=== PATIENT | female | born 1975 | race Caucasian/White ===

== ENCOUNTER 2016-12-12 19:40 | Emergency (ER) | payer OTHER ==
[~2016-12-12] VITALS: Ht 160 cm; Wt 100.2 kg
[~2016-12-12 19:40] MED LIST: ACET325T96 PO; CLC150 PO; MOMLX PO; TYL325X PO
[2016-12-12 19:43] VITALS: TEMP 36.7; Ht 160 cm; Wt 100.2 kg
[2016-12-12] MEDS ORDERED: SODIUM CHLORIDE 0.9% 1000ML 1,000 ML IV STA (20:04)
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
[2016-12-12 20:34] LABS: BASO % 0.3 %; BASO ABS # 0.03 K/uL (0-0.2); COMPLETE YES; EOS % 4.3 %; HEMATOCRIT 36.8 % (37-47); IG% 0.2 %; LYMPH % 30.3 %; LYMPH ABS # 3.14 K/uL (1.2-3.4); MEAN CELL VOLUME 90.9 fL (80-100); MEAN CORPUSCULAR HEMOGLOBIN 30.1 pg (25-34); MEAN CORPUSCULAR HGB CONC 33.2 g/dl (32-36); MEAN PLATELET VOLUME 10.5 fL (7.4-10.4); MONO % 5.7 %; NEUT % 59.2 %; PLATELET COUNT 311 K/uL (130-400); RED BLOOD COUNT 4.05 M/uL (4.2-5.4); WHITE BLOOD COUNT 10.36 K/uL (4.8-10.8)
[2016-12-12] MEDS ORDERED: BCPILLS PO (20:34)
[2016-12-12] MEDS ORDERED: MTR/400 PO (20:34)
[2016-12-12] MEDS ORDERED: CHOL2000 PO (20:34)
[2016-12-12] MEDS ORDERED: B COCAP PO (20:34)
[2016-12-12] MEDS ORDERED: LITH1TAB PO (20:34)
[2016-12-12] MEDS ORDERED: CHLO1TAB15 PO (20:34)
[2016-12-12] MEDS ORDERED: WLLSR150 PO (20:34)
[2016-12-12 20:47] LABS: BUN/CREATININE RATIO 11.5 (10-20); CREATININE 1.1 mg/dl (0.60-1.20); POTASSIUM 3.1 mmol/L (3.5-5.1)
[2016-12-12 20:48] LABS: CALCIUM 8.5 mg/dl (8.5-10.1)
[2016-12-12] MEDS ORDERED: OPTIRAY 320 IV PRN (21:15)
--- NOTE | 2016-12-12 21:16 | DIAGNOSTIC IMAGING REPORT ---
CT OF THE ABDOMEN AND PELVIS WITH CONTRAST CLINICAL HISTORY: Left sided abd pain, lateral hernia, bloating, constipation. COMPARISON STUDY: CT of the abdomen and pelvis December 25, 2014, pelvic ultrasound and renal ultrasound May 24, 2015. TECHNIQUE: Following IV administration of 115 mL of Optiray-320, axial images of the abdomen and pelvis were obtained from the lung bases to the proximal femurs. Images were reviewed in the axial, sagittal, and coronal planes. IV contrast was administered without complication. CT DOSE: 1248.36 mGy.cm FINDINGS: No pneumatosis, free air or portal venous gas is present. There is no biliary ductal dilatation status post cholecystectomy. The liver, spleen, adrenal glands and kidneys are unremarkable. There is no hydronephrosis. There is no peripancreatic infiltration. There is no hydronephrosis. There is mild distention of the stomach. There are findings consistent with repair of a left lateral abdominal wall hernia. A recurrent left lateral abdominal wall hernia is again noted, as shown on CT of December 21, 2014. Splenic flexure of the colon extends through the defect. A few small bowel loops slightly extends through the defect. There is no resultant bowel obstruction. As before, the left lateral abdominal wall musculature is attenuated with atrophy. There is no ascites. There is no abscess or lymphadenopathy. A tampon is in place. A fat-containing left inguinal hernia is noted. No suspicious osseous lesions are present. Caliber and wall thickness of small and large bowel are normal. Appendix is normal. IMPRESSION: 1. No acute process within the abdomen or pelvis. 2. Redemonstration of a recurrent left lateral abdominal wall hernia which contains the splenic flexure of the colon and a few small bowel loops. No bowel obstruction. Electronically signed by: Felix Douglas M.D. 12/12/2016 9:15 PM Dictated Date/Time: 12/12/2016 9:06 PM
[2016-12-12 21:34] LABS: URINE APPEARANCE CLEAR (CLEAR); URINE BILIRUBIN NEG (NEG); URINE COLOR YELLOW; URINE NITRITE NEG (NEG); URINE SPECIFIC GRAVITY 1.031 (1.000-1.030); UROBILINOGEN NEG (NEG); ZZUR CULT IF INDIC CLEAN CATCH NO
[2016-12-12 21:36] LABS: MANUAL MICROSCOPIC REQUIRED? NO; REVIEW REQ? NO
[2016-12-12 22:06] VITALS: BP 126/68; PULSE 60; O2SAT 99
== END 2016-12-12 22:07 | disposition home or self-care (01) ==
LOC: C.EDB 19:41
DX: R14.0 Abdominal distension (gaseous) (principal); J45.909 Unspecified asthma, uncomplicated; F31.9 Bipolar disorder, unspecified; Z62.810 Personal history of physical and sexual abuse in childhood; Z91.5 Personal history of self-harm; Z86.59 Personal history of other mental and behavioral disorders; Z98.51 Tubal ligation status; Z90.49 Acquired absence of other specified parts of digestive tract; Z98.890 Other specified postprocedural states; Z83.3 Family history of diabetes mellitus; Z82.49 Family history of ischemic heart disease and other diseases of the circulatory system; Z79.899 Other long term (current) drug therapy

== ENCOUNTER 2017-02-03 15:58 | Emergency (ER) | payer OTHER ==
[~2017-02-03] VITALS: Ht 160 cm; Wt 95.4 kg
[~2017-02-03 15:58] MED LIST changes: -ACET325T96 PO; +B COCAP PO; +BCPILLS PO; +CHLO1TAB15 PO; +CHOL2000 PO; -CLC150 PO; +LITH1TAB PO; -MOMLX PO; +MTR/400 PO; -TYL325X PO; +WLLSR150 PO
[2017-02-03 16:02] VITALS: TEMP 36.6; Ht 160 cm; Wt 95.4 kg
[2017-02-03] MEDS ORDERED: PROCHLORPERAZINE 5 MG/ML 2 ML VIAL IV STA (16:28)
[2017-02-03] MEDS ORDERED: SODIUM CHLORIDE 0.9% 1000ML 1,000 ML IV STA (16:28)
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
[2017-02-03] MEDS ORDERED: THR10 PO (16:49)
[2017-02-03 17:03] LABS: BASO % 0.2 %; BASO ABS # 0.02 K/uL (0-0.2); COMPLETE YES; EOS % 3.7 %; HEMATOCRIT 39.7 % (37-47); IG% 0.3 %; LYMPH % 18.8 %; LYMPH ABS # 1.89 K/uL (1.2-3.4); MEAN CELL VOLUME 89.6 fL (80-100); MEAN CORPUSCULAR HEMOGLOBIN 31.4 pg (25-34); MEAN PLATELET VOLUME 10.1 fL (7.4-10.4); MONO % 6.9 %; NEUT % 70.1 %; PLATELET COUNT 348 K/uL (130-400); RED BLOOD COUNT 4.43 M/uL (4.2-5.4); WHITE BLOOD COUNT 10.06 K/uL (4.8-10.8)
--- NOTE | 2017-02-03 17:17 | DIAGNOSTIC IMAGING REPORT ---
CT HEAD WITHOUT CONTRAST (CT) CLINICAL HISTORY: Severe headache, nausea, vomiting COMPARISON STUDY: 10/13/2015, MRI the brain dated 10/14/2015 TECHNIQUE: Axial CT of the brain is performed from the vertex to the skull base. IV contrast was not administered for this examination. A dose lowering technique was utilized adhering to the principles of ALARA. CT DOSE: 601.98 mGy.cm FINDINGS: No intra or extra-axial mass lesions are visualized. There is no CT evidence of acute cortical infarction. There is no evidence of midline shift. There is no acute hemorrhage. No calvarial fractures are visualized. There are a few white matter hypodensities likely on a small vessel basis, and similar to the preceding study.. There is no evidence of pathologic ventricular dilatation. There is no evidence of acute sinusitis IMPRESSION: No acute intracranial findings Electronically signed by: Jhony Mcgee M.D. 02/03/2017 5:16 PM Dictated Date/Time: 02/03/2017 5:14 PM
[2017-02-03 17:23] LABS: BUN/CREATININE RATIO 16.5 (10-20); CALCIUM 9.8 mg/dl (8.5-10.1); CREATININE 0.8 mg/dl (0.60-1.20); POTASSIUM 3.5 mmol/L (3.5-5.1)
[2017-02-03] MEDS ORDERED: KETOROLAC TROMETHAMINE 30 MG/ML VIAL IV STA (17:44)
[2017-02-03 18:02] LABS: MANUAL MICROSCOPIC REQUIRED? NO; REVIEW REQ? YES; URINE APPEARANCE CLEAR (CLEAR); URINE BILIRUBIN NEG (NEG); URINE COLOR DK YELLOW; URINE EPITHELIAL CELL AUTO >30 /lpf (0-5); URINE NITRITE NEG (NEG); URINE SPECIFIC GRAVITY 1.016 (1.000-1.030); UROBILINOGEN NEG (NEG)
[2017-02-03 18:11] LABS: URINE MUCUS PRESENT (NONE PRSENT)
[2017-02-03] MEDS ORDERED: CYCL10TA6 PO (19:53)
[2017-02-03] MEDS ORDERED: FLEXERIL HOME PACK 10 MG VIAL PO ONE (20:00)
[2017-02-03 21:01] VITALS: BP 101/61
[2017-02-03 21:07] VITALS: PULSE 70; O2SAT 97
== END 2017-02-03 21:08 | disposition home or self-care (01) ==
LOC: C.EDB 15:59
DX: G44.209 Tension-type headache, unspecified, not intractable (principal); F90.9 Attention-deficit hyperactivity disorder, unspecified type; F31.9 Bipolar disorder, unspecified; J45.909 Unspecified asthma, uncomplicated; Z90.49 Acquired absence of other specified parts of digestive tract; Z98.51 Tubal ligation status; Z98.890 Other specified postprocedural states; Z79.899 Other long term (current) drug therapy; Z83.3 Family history of diabetes mellitus; Z80.9 Family history of malignant neoplasm, unspecified; Z82.49 Family history of ischemic heart disease and other diseases of the circulatory system; Z83.79 Family history of other diseases of the digestive system; Z84.1 Family history of disorders of kidney and ureter

== ENCOUNTER → 2017-10-06 | Outpatient (CLI) | payer OTHER ==
[~2017-10-06] MED LIST changes: +THR10 PO
[2017-10-06 09:34] LABS: BASO % 0.3 %; BASO ABS # 0.03 K/uL (0-0.2); EOS % 2.5 %; EOS ABS # 0.27 K/uL (0-0.5); HEMATOCRIT 39.9 % (37-47); HEMOGLOBIN 13.9 g/dL (12.0-16.0); IG# 0.02 K/uL (0.00-0.02); LYMPH ABS # 2.08 K/uL (1.2-3.4); MEAN CELL VOLUME 87.7 fL (80-100); MEAN CORPUSCULAR HEMOGLOBIN 30.5 pg (25-34); MEAN CORPUSCULAR HGB CONC 34.8 g/dl (32-36); MEAN PLATELET VOLUME 10.4 fL (7.4-10.4); MONO % 4.6 %; MONO ABS # 0.51 K/uL (0.11-0.59); NEUT % 73.4 %; NEUT ABS # 8.06 K/uL (1.4-6.5); PLATELET COUNT 372 K/uL (130-400); RED CELL DISTRIBUTION WIDTH CV 12.9 % (11.5-14.5); RED CELL DISTRIBUTION WIDTH SD 41.6 fL (36.4-46.3); WHITE BLOOD COUNT 10.97 K/uL (4.8-10.8)
[2017-10-06 09:50] LABS: ALBUMIN 3.8 gm/dl (3.4-5.0); ALT/SGPT 37 U/L (12-78); AST/SGOT 22 U/L (15-37); BLOOD UREA NITROGEN 16 mg/dl (7-18); CALCIUM 9.4 mg/dl (8.5-10.1); CARBON DIOXIDE 20 mmol/L (21-32); CHOLESTEROL 188 mg/dl (0-200); CREATININE 0.82 mg/dl (0.60-1.20); GLUCOSE 85 mg/dl (70-99); POTASSIUM 3.4 mmol/L (3.5-5.1); SODIUM 138 mmol/L (136-145)
[2017-10-06 09:58] LABS: ALKALINE PHOSPHATASE 60 U/L (45-117); LDL CHOLESTEROL CALCULATED 119 mg/dl; TOTAL PROTEIN 7.7 gm/dl (6.4-8.2)
[2017-10-06 09:59] LABS: HEMOGLOBIN A1C 5.2 % (4.5-5.6)
== END | disposition home or self-care (01) ==
LOC: C.LAB 08:40
PROVIDERS: ATTEND Physician Assistant
DX: Z51.81 Encounter for therapeutic drug level monitoring (principal); Z79.899 Other long term (current) drug therapy

== ENCOUNTER 2018-02-06 12:15 | Emergency (ER) | payer SELFPAY ==
[~2018-02-06] VITALS: Ht 160 cm; Wt 84.5 kg
[~2018-02-06 12:15] MED LIST changes: +AMPH30CA3 PO
[2018-02-06 12:17] VITALS: Ht 160 cm; Wt 84.5 kg
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
[2018-02-06 12:29] VITALS: BP 147/84; PULSE 74; TEMP 36.8; O2SAT 97
== END 2018-02-06 12:29 | disposition home or self-care (01) ==
LOC: C.EDB 12:15 → C.EDD 12:29
DX: S61.412D Laceration without foreign body of left hand, subsequent encounter (principal); X58.XXXD Exposure to other specified factors, subsequent encounter; F90.9 Attention-deficit hyperactivity disorder, unspecified type; J45.909 Unspecified asthma, uncomplicated; F41.9 Anxiety disorder, unspecified; Z88.5 Allergy status to narcotic agent

== ENCOUNTER 2018-11-02 11:23 | Inpatient (IN) ==
[2018-11-02] MEDS ORDERED: cefTRIAXone SODIUM 1,000 MG/50 ML BAG IV STA (11:54)
[2018-11-02] MEDS ORDERED: SODIUM CHLORIDE 0.9% 1000ML 1,000 ML IV ONE (11:54)
[2018-11-02] MEDS ORDERED: ACETAMINOPHEN 1,000 MG/100 ML VIAL IV STA (12:22)
[2018-11-02 12:31] LABS: Appearance Urine Clear (Clear); Bilirubin Urine Negative (Negative); Blood Urine 1+ (Negative); Color Urine Yellow; Epithelial Cell Urine Auto >30 /lpf (0-5); Glucose Urine UA Negative (Negative); Ketones Urine Negative (Negative); Leukocyte Esterase Urine 1+ (Negative); Nitrite Urine Negative (Negative); Protein Urine Trace (Negative); Specific Gravity Urine 1.014 (1.000-1.030); Urobilinogen Urine Negative (Negative); pH Urine 6.5 (4.5-7.5)
[2018-11-02 12:38] LABS: Basophils # (auto) 0.02 K/uL (0-0.2); Basophils % (auto) 0.2 %; Eosinophils # (auto) 0.09 K/uL (0-0.5); Eosinophils % (auto) 0.7 %; Hematocrit (blood only) 38.7 % (37-47); Hemoglobin 13.3 g/dL (12.0-16.0); Immature Granulocytes # (auto) 0.04 K/uL (0.00-0.02); Immature Granulocytes % (auto) 0.3 %; Lymphocytes # (auto) 1.78 K/uL (1.2-3.4); Lymphocytes % (auto) 14.7 %; Mean Corpuscular Hgb Conc 34.4 g/dL (32-36); Mean Corpuscular Volume 88.6 fL (80-100); Mean Platelet Volume 10.1 fL (7.4-10.4); Monocytes # (auto) 1.58 K/uL (0.11-0.59); Monocytes % (auto) 13.1 %; Neutrophils # (auto) 8.56 K/uL (1.4-6.5); Platelet Count 177 K/uL (130-400); RDW Coefficient of Variation 13.7 % (11.5-14.5); RDW Standard Deviation 44.9 fL (36.4-46.3); Red Blood Count 4.37 M/uL (4.2-5.4); White Blood Count 12.07 K/uL (4.8-10.8)
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
[2018-11-02 12:50] LABS: Albumin Globulin Ratio 0.7 (0.9-2); Albumin Level 2.7 gm/dl (3.4-5.0); BUN Creatinine Ratio 16.8 (10-20); Bilirubin,Total 0.4 mg/dl (0.2-1); Calcium 9.2 mg/dl (8.5-10.1); Creatinine Clr Calc Pharmacy 137.1 ml/min; Est GFR (African American) 135.6; Globulin 3.9 gm/dl (2.5-4.0); Potassium 4.1 mmol/L (3.5-5.1); Total Protein 6.6 gm/dl (6.4-8.2)
[2018-11-02 12:55] LABS: Bacteria Urine Automated 1+ (Negative)
--- NOTE | 2018-11-02 13:10 | Ultrasound Report ---
EXAMINATION: RENAL ULTRASOUND CLINICAL HISTORY: flank pain, pyelonephritis, UTI COMPARISON STUDY: CT scan dated 11/01/2018 FINDINGS: The right kidney measures 11.6 cm. The left kidney measures 10.1 cm. There is mild fullnes s left renal collecting system. There is slight heterogeneity in the appearance of the renal parenchy ma, finding consistent with the clinical history of polynephritis. There is no ultrasonographic evid ence of focal renal abscess. There are no perinephric fluid collections. The bladder was not well-distended. Neither ureteral jet was visualized. There is borderline bladder wall thickening. IMPRESSION : 1. Slight heterogeneity in the echotexture the left kidney, a nonspecific finding consistent with the clinical history of polynephritis. 2. Minimal fullness of the left renal collecting system Electronically signed by: Jhony Mcgee M.D. 11/02/2018 1:09 PM
[2018-11-02] MEDS ORDERED: ALBUT/IPRATROP 3MG/0.5MG NEB 3 ML VIAL NEB PRN (13:45)
[2018-11-02] MEDS ORDERED: ACETAMINOPHEN 325 MG TAB PO PRN (15:03)
[2018-11-02] MEDS ORDERED: ONDANSETRON INJ 2 MG/ML 2 ML VIAL IV PRN (15:03)
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
[2018-11-02] MEDS ORDERED: KETOROLAC TROMETHAMINE 15 MG/ML VIAL IV PRN (15:17)
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
[2018-11-02] MEDS: CHLORPROMAZINE HCL 25 MG TABLET PO SCH (20:58)
[2018-11-02] MEDS: SACCHAROMYCES BOULARDII 250 MG CAP PO SCH (20:59)
[2018-11-02] MEDS: BuPROPion SR 150 MG TABCR PO SCH (21:12)
[2018-11-02] MEDS ORDERED: IBUPROFEN 600 MG TAB PO PRN (23:17)
[2018-11-02] MEDS: SODIUM CHLORIDE 0.9% 1000ML 1,000 ML IV SCH (23:47)
[2018-11-03 06:50] LABS: Hematocrit (blood only) 35.7 % (37-47); Hemoglobin 11.9 g/dL (12.0-16.0); Mean Corpuscular Hgb Conc 33.3 g/dL (32-36); Mean Platelet Volume 10.4 fL (7.4-10.4); Platelet Count 170 K/uL (130-400); RDW Coefficient of Variation 13.6 % (11.5-14.5); RDW Standard Deviation 45.4 fL (36.4-46.3); Red Blood Count 4.01 M/uL (4.2-5.4); White Blood Count 7.17 K/uL (4.8-10.8)
[2018-11-03 07:25] LABS: BUN Creatinine Ratio 14.1 (10-20); Calcium 8.6 mg/dl (8.5-10.1); Est GFR (Non-African American) 115.6
[2018-11-03] MEDS: SODIUM CHLORIDE 0.9% 1000ML 1,000 ML IV SCH (07:34)
[2018-11-03] MEDS: BuPROPion SR 150 MG TABCR PO SCH ×2 (08:34→20:14)
[2018-11-03] MEDS: VITAMIN B COMPLEX TAB PO SCH (08:34)
[2018-11-03] MEDS: SACCHAROMYCES BOULARDII 250 MG CAP PO SCH ×2 (08:34→20:16)
[2018-11-03] MEDS: CHLORPROMAZINE HCL 10 MG TABLET PO SCH (08:34)
[2018-11-03] MEDS: CHOLECALCIFEROL 1,000 UNITS TAB PO SCH (08:35)
[2018-11-03] MEDS: cefTRIAXone SODIUM 1,000 MG in DEXTROSE 5% 50 ML IV SCH (12:24)
--- NOTE | 2018-11-03 15:39 | Hospitalist Progress Note ---
Date of Service November 03, 2018 Assessment & Plan (1) Pyelonephritis, acute: History of recurrent UTI, Urine culture 11/01/2018: Positive for E. coli, on IV Rocephin as per sensitivity Repeat urine culture obtained yesterday 11/02/2018 in ER, report pending Appreciate input from ID Recommend continue IV Rocephin until final culture and sensitivity is obtained (2) Bacteremia: Blood culture on 11/01/2018 drawn in ED: Growing E. coli Source of infection UTI: E. coli -ED visit on 11/01/2018 showed UA suggestive of UTI and CT ABD/pelvis showing pyelonephritis; patient was discharged home on cefdinir Antibiotic changed to IV Rocephin as per sensitivity -No evidence of sepsis, normal white count, afebrile -This is patient's third UTI in the past 8 months, other cultures have grown E. coli Due to recurrent UTI, patient will benefit with outpatient urology evaluation -ID consult, input appreciated Patient will be continued with IV Rocephin, until culture and sensitivity from 11/02/2018 specimen available Can be changed to oral quinolones prior to discharge (3) Asthma: No wheeze or shortness of breath noted -Stable (4) MACY (generalized anxiety disorder): Continue outpatient med (5) Bipolar 1 disorder: Continue home meds (6) ADD (attention deficit disorder): -Continue home meds (7) DVT prophylaxis: -SCDs, ambulate CODE STATUS: Full code Disposition: Expected to be discharged home next 24 to 48 hours once sensitivity of E. coli infection available to adjust p.o. antibiotics Subjective Denies of any urinary symptoms, no increased frequency of dysuria, no lower abdominal discomfort No fever or chills, no nausea Reports of constipation, requesting stool softeners Physical Exam Constitutional: WD/WN, vitals as above Eyes: PERRL, conjunctivae normal, anicteric sclerae ENMT: external ear and nose normal, oropharynx normal Neck: trachea midline, no thyromegaly Respiratory: normal respiratory effort, lungs clear to auscultation Cardiovascular: Rate/Rhythm: regular rate and regular rhythm Vessels: normal peripheral pulses Extremities: no edema Gastrointestinal (Abdomen): normal bowel sounds, soft, nontender, no hepatosplenomegaly No CVA tenderness Musculoskeletal: no cyanosis or clubbing, extremities motor strength 5/5 Skin: no rashes, warm and dry Neurologic: PERRL, EOMI, accommodation nl, no face palsy, no dysarthria Psychiatric: A+Ox3, euthymic affect Genitourinary: no CVA tenderness Results & Data Vital Signs (Past 12 Hours) Vital Signs Temp Pulse Resp BP Pulse Ox 11/03/18 15:15 36.9 C 81 16 109/68 100 11/03/18 07:39 36.5 C 67 16 106/68 100
[2018-11-03] MEDS: POLYETHYLENE (MIRALAX) 17 GM PACK PO SCH (16:56)
[2018-11-03] MEDS: DOCUSATE SODIUM 100 MG CAP PO SCH (20:14)
[2018-11-03] MEDS: CHLORPROMAZINE HCL 25 MG TABLET PO SCH (20:15)
--- NOTE | 2018-11-03 21:17 | Infectious Disease Progress Nt ---
Date of Service November 03, 2018 Assessment & Plan (1) Pyelonephritis, acute: 42-year-old female with acute pyelonephritis with bacteremia, likely E. coli. Isolate is sensitive to ceftriaxone so this will provide appropriate coverage. Await final identification of blood isolate to ensure that this is same E. coli that is in urine. Once clinically improved, can likely transition to oral quinolone or cephalosporin. Will follow. (2) E coli bacteremia: Subjective Patient seen in follow-up for gram-negative bacteremia with urinary tract infection. Denies of any urinary symptoms, no increased frequency of dysuria, no lower abdominal discomfort No fever or chills, no nausea Review of Systems Review of Systems: All systems reviewed & are unremarkable except as noted in HPI & below Results & Data Vital Signs (Past 12 Hours) Vital Signs Temp Pulse Resp BP Pulse Ox 11/03/18 19:53 36.8 C 91 H 20 103/66 98 11/03/18 15:15 36.9 C 81 16 109/68 100 Laboratory Results Short CBC 11/03/18 Range/Units 05:59 WBC 7.17 (4.8-10.8) K/uL Hgb 11.9 L (12.0-16.0) g/dL Hct 35.7 L (37-47) % Plt Count 170 (130-400) K/uL BMP 11/03/18 05:59 Sodium 143 Potassium 4.0 Chloride 114 H Carbon Dioxide 23 BUN 8 Creatinine 0.54 L Glucose 84 Calcium 8.6 Diagnostic Findings Spec: [id number] Collected: 11/01/18-1608 Received: 11/01/18-[address]: Rob Murillo M.D. Copy To: Janet Alva, DO Self, Referred Source: Blood OV Order: Ordered: Blood Culture Comments: Comment Default is separate sites, same time Blood culture drawn venously from Left Arm. Procedure Result Verified Site Blood Culture Preliminary 11/03/18-1512 Organism 1 Gram negative bacilli Sens Sensitivities to Follow Phoned positive Blood Culture Gram Stain report to Coretta Easton on 11/02/18 at 0548 by [id number]. Results were verbalized back to [id number].
[2018-11-03] MEDS ORDERED: FLUCONAZOLE 100 MG TAB PO ONE (22:36)
[2018-11-04] MEDS ORDERED: CIPROFLOXACIN 500 MG TAB PO SCH
[2018-11-04] MEDS: VITAMIN B COMPLEX TAB PO SCH (09:20)
[2018-11-04] MEDS: CHOLECALCIFEROL 1,000 UNITS TAB PO SCH (09:20)
[2018-11-04] MEDS: SACCHAROMYCES BOULARDII 250 MG CAP PO SCH (09:21)
[2018-11-04] MEDS: BuPROPion SR 150 MG TABCR PO SCH (09:21)
[2018-11-04] MEDS: DOCUSATE SODIUM 100 MG CAP PO SCH (09:21)
[2018-11-04] MEDS: CHLORPROMAZINE HCL 10 MG TABLET PO SCH (09:21)
[2018-11-04] MEDS: POLYETHYLENE (MIRALAX) 17 GM PACK PO SCH (09:23)
[2018-11-04] MEDS: cefTRIAXone SODIUM 1,000 MG in DEXTROSE 5% 50 ML IV SCH (10:22)
--- NOTE | 2018-11-04 16:38 | Discharge Summary ---
Date of Service November 04, 2018 Admission HPI Per Admitting Provider 42-year-old female who was called to be evaluated in the ED after the cultures from yesterday's visit have become positive. Patient was evaluated in the ER yesterday for urinary symptoms, body aches, fever. She was found to have a UA suggestive of UTI and CT ABD/pelvis demonstrated pyelonephritis. Patient was discharged home with a prescription for Cefdinir. This is the patient's third UTI in the past 9 months. Other urine cultures were positive for E. coli and patient was treated as an outpatient. For her current infection, patient reports she developed symptoms about 1 month ago. She reports urinary burning and pain. 5 days ago, she reports she developed left flank pain, body aches, fevers. She was seen in the ER yesterday as aforementioned. Patient reports no improvement in her symptoms and is returning home. She received a phone call today from the ER stating that her blood cultures became positive and that she needed to be reevaluated. Patient denies chest pain shortness of breath. She reports a history of asthma and feels as though her chest is little tight. No lightheadedness, dizziness, diaphoresis, syncopal events. She reports nausea but denies vomiting, abdominal pain, diarrhea. In the ED today, patient is afebrile, WBC 12 K, renal functions WNL. She was given IV Tylenol, IV ceftriaxone, IVF. Principal Diagnosis E. coli, gram-negative bacteremia Discharge Exam Constitutional WD/WN, vitals as above Eyes PERRL, conjunctivae normal, anicteric sclerae ENMT external ear and nose normal, oropharynx normal Neck trachea midline, no thyromegaly Respiratory normal respiratory effort, lungs clear to auscultation normal respiratory effort; no respiratory distress Auscultation: + wheezes (Few, faint, scattered, expiratory) Cardiovascular Rate/Rhythm: regular rate and regular rhythm Vessels: normal peripheral pulses Extremities: no edema Gastrointestinal (Abdomen) normal bowel sounds, soft, nontender, no hepatosplenomegaly Musculoskeletal no cyanosis or clubbing, extremities motor strength 5/5 Skin no rashes, warm and dry Neurologic PERRL, EOMI, accommodation nl, no face palsy, no dysarthria Psychiatric A+Ox3, euthymic affect Genitourinary no CVA tenderness Discharge Data Allergies Allergy/AdvReac Type Severity Reaction Status Date / Time cat dander Allergy Unknown UNK Verified 11/02/18 12:42 mold Allergy Unknown UNK Verified 11/02/18 12:42 codeine AdvReac Mild GI UPSET Verified 11/02/18 12:42 Dust Allergy Unknown UNK Uncoded 11/02/18 12:42 Consultations 11/02/18 12:03 ED Decision to Admit Stat 11/02/18 15:03 Consult Infectious Diseases Routine Ordered Studies 11/02/18 11:54 US renal/blad retro comp Stat Hospital Course (1) Pyelonephritis, acute: History of recurrent UTI, Urine culture 11/01/2018: Positive for E. coli, on IV Rocephin as per sensitivity Repeat urine culture obtained 11/02/2018 in ER, Appreciate input from ID Patient remains medically stable, no fever chills, no flank pain, ambulating in the unit independently, eager to be discharged home Antibiotic changed to P.o.ciprofloxacin as per sensitivity complete total 10 days of treatment (2) Bacteremia: Blood culture on 11/01/2018 drawn in ED: Growing E. coli Source of infection UTI: E. coli -ED visit on 11/01/2018 showed UA suggestive of UTI and CT ABD/pelvis showing pyelonephritis; patient was discharged home on cefdinir Treated with IV Rocephin as per sensitivity -No evidence of sepsis, normal white count, afebrile -This is patient's third UTI in the past 8 months, All urine cultures positive for E. coli Due to recurrent UTI, patient will benefit with outpatient urology evaluation Information given for urology at [facility] clinic Will be discharged home with 10 days of p.o. ciprofloxacin Patient given information regarding prevention of UTI, Encouraged for adequate fluid intake to prevent dehydration Patient should contact her family physician with any return of urinary symptoms, can be treated in clinic with early initiation of antibiotic, which may prevent worsening of infection leading to bacteremia in hospital admission Patient voiced understanding -ID consult, input appreciated Patient will be continued with IV Rocephin, until culture and sensitivity from 11/02/2018 specimen available Can be changed to oral quinolones prior to discharge (3) Asthma: No wheeze or shortness of breath noted -Stable (4) MACY (generalized anxiety disorder): Continue outpatient med (5) Bipolar 1 disorder: Continue home meds (6) ADD (attention deficit disorder): -Continue home meds (7) DVT prophylaxis: -SCDs, ambulate CODE STATUS: Full code Disposition: Stable to be discharged home today Total Time Total Time Spent Total Time Spent (In Minutes): Approximately 45 minutes Total Time Includes: Examination of the Patient, Discharge Planning and Medication Reconciliation Discharge Plan Discharge Items Patient Disposition: Home - Self-Care Reason For Visit: BACTEREMIA, PYELONEPHRITIS Discharge Diagnosis: RECURRENT UTI ; E COLI E COLI BACTEREMIA Discharge Goals: Decrease discomfort Activity: Resume your previous activity Non-emergency contact: Primary Care Provider Call non-emergency contact if: you have any medication questions Follow-up/Referrals: Uriel Figueroa DO [Primary Care Provider] - Bette Carlos MD [Physician] - Diet: Regular Addtl Provider Instructions: NEED UROLOGY FOLLOW UP FOR RECURRENT UTI TAKE PROBIOTICS WHILE ON ANTIBIOTICS DRINK PLENTY OF FLUID PLEASE NOTIFY YOUR FAMILY PHYSICIAN IF YOU ARE EXPERIENCING INCREASE IN URINARY FREQUENCY , BURNING SENSATION WITH URINATION -POSSIBLE SIGNS OF UTI DR URIEL FIGUEROA WILL BE ABLE TO ORDER ANTIBIOTIC AFTER URINE TEST IN CLINIC , WHICH MAY PREVENT FUTURE HOSPITAL ADMISSIONS, WORSENING OF INFECTION LEADING TO BACTERIA IN BLOOD /BLOOD INFECTION Prescriptions: New ciprofloxacin HCl 500 mg tablet 500 mg PO BID 10 Days Qty: 20 RF: 0 Continued bupropion HCl 150 mg tablet sustained-release 12 hr 150 mg PO BID RF: 0 chlorpromazine 10 mg tablet 10 mg PO QAM RF: 0 naproxen sodium 220 mg Tablet 220 mg PO Q12H PRN (Reason: Pain) RF: 0 vitamin B complex Tablet 1 tab PO QAM RF: 0 albuterol sulfate 90 mcg/actuation HFA aerosol inhaler 2 puff inhalation QID PRN (Reason: Shortness Of Breath Or Wheezing) RF: 0 cholecalciferol (vitamin D3) [Vitamin D3] 2,000 unit Capsule 2,000 unit PO QAM RF: 0 promethazine 25 mg tablet 25 mg PO Q6H PRN (Reason: nausea and vomiting) Qty: 14 RF: 0 Florastor 250 mg capsule 250 mg PO BID Qty: 20 RF: 0 acetaminophen [Tylenol Extra Strength] 500 mg Tablet 500 mg PO Q6H PRN (Reason: pain/fever) RF: 0 ibuprofen 200 mg Tablet 200 mg PO Q6H PRN (Reason: Pain/fever) RF: 0 chlorpromazine 50 mg Tablet 50 mg PO HS RF: 0 Discontinued cefdinir 300 mg capsule 300 mg PO BID 10 Days Qty: 20 RF: 0 Stand-Alone Forms: [facility], Work/School Release (Inpt) [place]/Other Patient Handouts: ED UTI Cystitis Female Discharge Orders: Discharge Order (Routine); Ordered 11/04/18 Ordered By: Nicole Spivey Admission Data Admit Date/Time: 11/02/18 12:55 Attending Provider: Nicole Spivey Admit Provider: Hyacinth Neal Primary Care Provider: Uriel Figueroa Other Providers: Chato Juan ; Hyacinth Neal ; Jaciel Mccurdy Service: Medical Other Interventions: Discharge Summary Assessment (RN) Last Done: 11/04/18 17:26
[2018-11-07 14:44] LABS: GC (Neis gonorrhoeae) RNA NOT DETECTED (NOT DETECTED); HSV Type 1 DNA Not Detected (Not Detected); HSV Type 1&2 DNA Source Whole Blood; HSV Type 2 DNA Not Detected (Not Detected)
== END 2018-11-04 18:41 | disposition home or self-care (01) | DRG 690 ==
LOC: ED 11:23 → SUATTDRO 12:55 → 4E 12:55
DX: N39.0 Urinary tract infection, site not specified; R78.81 Bacteremia; B96.20 Unspecified Escherichia coli [E. coli] as the cause of diseases classified elsewhere; Z91.048 Other nonmedicinal substance allergy status; Z87.891 Personal history of nicotine dependence; Z88.5 Allergy status to narcotic agent; N12 Tubulo-interstitial nephritis, not specified as acute or chronic; N10 Acute pyelonephritis; Z88.6 Allergy status to analgesic agent; F31.9 Bipolar disorder, unspecified; F41.1 Generalized anxiety disorder; J45.909 Unspecified asthma, uncomplicated; F41.9 Anxiety disorder, unspecified